=== PATIENT | female | born 1985 | race Caucasian/White ===

== ENCOUNTER 2020-02-29 14:40 | Emergency (ER) | payer SELFPAY ==
[2020-02-29 15:06] VITALS: BP 135/63; PULSE 106; RESP 20; TEMP 36.3; O2SAT 97
--- NOTE | 2020-02-29 15:37 | ED.GENADULT ---
HPI - General Adult General Chief complaint: Skin/Abscess/Foreign Body Stated complaint: sore on right foot and fingers Time Seen by Provider: 02/29/20 15:15 Source: patient and RN notes reviewed Mode of arrival: ambulatory Limitations: no limitations History of Present Illness HPI narrative: Patient presents today complaining of pain to her right great toe, right foot. This area started out with a large blister to the great toe 3 weeks ago that ruptured. 2 weeks ago the toenail fell off and the toe has become black in color. Redness, swelling, and severe pain has spread up to the mid lower leg. Patient had a fever up to 102.32 days ago, but since then has been taking Tylenol and ibuprofen. States she cannot weight-bear and currently rates her pain 02/27. Patient has diabetes, but has been out of her diabetic medications for some time. She also has neuropathy. She is also complaining of some swelling and possible abscesses to the bilateral hands. History of abscesses in the past with I&D's, but denies history of MRSA. MD complaint: Right great toe infection Related Data Home Medications Medication Instructions Recorded Confirmed gabapentin 100 mg PO TID 02/29/20 02/29/20 metformin 1,000 mg PO BID 02/29/20 02/29/20 Allergies Allergy/AdvReac Type Severity Reaction Status Date / Time No Known Allergies Allergy Unknown Verified 02/29/20 15:19 Review of Systems Review of Systems: Narrative: CONSTITUTIONAL: Denies body aches, chills, or sweats. + Fever EYES: Denies visual changes, redness, or discharge. ENT: Denies rhinorrhea, congestion, sore throat, or otalgia. CARDIOVASCULAR: Denies chest pain, palpitations, or edema. RESPIRATORY: Denies cough or dyspnea. GASTROINTESTINAL: Denies abdominal pain, nausea, vomiting, or diarrhea. GENITOURINARY: Denies dysuria or hematuria. SKIN:+ Right great toe wound and infection, right foot infection, infection of bilateral hands MUSCULOSKELETAL: Denies back pain, joint pain, or myalgia. NEUROLOGIC: Denies headache, numbness, tingling, or weakness. PSYCH: Denies depression or anxiety. [facility] Past Medical History Medical History (Updated 02/29/20 @ 15:50 by Cherelle Curiel, [employer], ) Diabetes Diabetic neuropathy Family History Family History (Updated 01/15/14 @ 07:13 by DOCTOR UNKNOWN) Mother Family history of mental disorder Depression Family history of migraine headaches Grandparent Cerebrovascular accident Diabetes mellitus Social History Social History (Updated 02/29/20 @ 15:40 by Cherelle Curiel, [facility], ) Smoking packs per day: 1.5 Smoking cigarettes per day: 30.0 Smoking status: Current every day smoker Alcohol intake: current Comments At time of signature, I have reviewed and agree with nursing past medical, surgical, social and family history unless otherwise noted. Please see nursing chart for further information. There is no relevant family history pertinent to the presenting complaint Exam Narrative: Exam Narrative: GENERAL: Ill appearing, well-nourished, and in no acute distress. HEAD: Normocephalic, atraumatic. EYES: EOMI. No redness or drainage. Conjunctivae normal. ENT: Mucous membranes pink and moist. NECK: Normal AROM. Supple. No lymphadenopathy. CHEST: No respiratory distress. Clear to auscultation. HEART: Regular rate and rhythm. No murmur appreciated. Normal peripheral pulses. MUSCULOSKELETAL: No bony tenderness. SKIN: Warm, dry. Normal skin turgor. Right foot: Patient has an area measuring 5 x 4 cm to the distal tip that is black and necrotic, dry and firm. Patient has no sensation to this area. Toenail is absent. Remainder of the toe is severely erythematous and edematous and significantly tender. This edema and erythema extend to the entirety of the foot, except for the remaining toes, and up the ankle. She does have some mild erythema to the medial portion of distal lower leg. She has some significant bony tend
== END 2020-02-29 15:54 | disposition short-term general hospital (02) ==
PROVIDERS: Emergency Provider Nurse Practitioner
DX: E11.8 Type 2 diabetes mellitus with unspecified complications (principal); L08.9 Local infection of the skin and subcutaneous tissue, unspecified; S91.201A Unspecified open wound of right great toe with damage to nail, initial encounter; X58.XXXA Exposure to other specified factors, initial encounter; F17.210 Nicotine dependence, cigarettes, uncomplicated; E11.42 Type 2 diabetes mellitus with diabetic polyneuropathy
CPT/HCPCS: 99212; G0463